=== PATIENT | male | born 1945 ===

== ENCOUNTER 2023-08-30 13:40 | Inpatient (IN) ==
[2023-08-30] MEDS ORDERED: ONDANSETRON 4 MG/2 ML VIAL IV PRN (16:36)
[2023-08-30] MEDS ORDERED: BISACODYL 10 MG SUPP.RECT PR PRN (16:39)
[2023-08-30] MEDS ORDERED: SENNOSIDES 1 TABLET PO PRN (16:39)
[2023-08-30 17:40] LABS: Basophils # (Auto) 0.01 K/mcL (0.00-0.30); Basophils % (Auto) 0.3 % (0.0-2.0); Eosinophils # (Auto) 0.09 K/mcL (0.00-0.70); Eosinophils % (Auto) 2.6 % (0.0-7.0); Hematocrit 27.5 % (40.1-51.0); Hemoglobin 9.4 g/dL (13.7-17.5); Lymphocytes # (Auto) 0.82 K/mcL (1.50-4.80); Lymphocytes % (Auto) 23.9 % (15.5-49.0); Mean Cell Volume 96.2 fL (80.0-100.0); Mean Corpuscular HGB Conc 34.2 g/dL (31.0-36.0); Mean Platelet Volume 10.1 fL (8.8-12.5); Monocytes # (Auto) 0.27 K/mcL (0.10-0.90); Monocytes % (Auto) 7.9 % (1.0-12.0); Platelet Count 136 K/mcL (140-440); RBC 2.86 M/mcL (4.63-6.08); Red Cell Distribution Width 13.1 % (11.5-14.5); WBC 3.4 K/mcL (4.5-11.0)
[2023-08-30 17:54] LABS: AST/SGOT 23 U/L (<40); Albumin 3.4 gm/dL (3.2-5.2); Albumin/Globulin Ratio 1.4 (1.0-2.3); Alkaline Phosphatase 117 U/L (39-117); Bilirubin,Total 1.1 mg/dL (0.1-1.0); Blood Urea Nitrogen 17 mg/dL (8-23); Calcium 8.5 mg/dL (8.6-10.4); Carbon Dioxide 25 mmol/L (22-30); Chloride 104 mmol/L (96-108); Globulin 2.5 gm/dL (2.2-3.7); Glomerular Filtration Rate 64; Glucose 116 mg/dL (70-105)
[2023-08-30] MEDS: cefTRIAXone 2 GM in DEXTROSE 5% IN WATER 50 ML IV SCH (18:15)
[2023-08-30] MEDS ORDERED: PROPOFOL 200 MG/20 ML VIAL IV ONE (18:37)
[2023-08-30] MEDS: LIDOCAINE 2% URO-JET 10 ML JEL.PF.APP UR ONE (18:49)
[2023-08-30] MEDS ORDERED: SUGAMMADEX SODIUM 200 MG/2 ML VIAL IV ONE (18:50)
[2023-08-30] MEDS ORDERED: PROMETHAZINE 25 MG/ML VIAL IV PRN (18:51)
[2023-08-30] MEDS ORDERED: IPRATROPIUM/ALBUTEROL 3 ML AMPUL.NEB NEB PRN (18:51)
[2023-08-30] MEDS ORDERED: SUCCINYLCHOLINE 200 MG/10 ML VIAL IV ONE (19:11)
[2023-08-30] MEDS ORDERED: ONDANSETRON 4 MG/2 ML VIAL ONE (19:11)
[2023-08-30] MEDS ORDERED: LIDOCAINE 2% PF 5 ML VIAL ONE (19:11)
[2023-08-30] MEDS ORDERED: ROCURONIUM 10 MG/ML ML IV ONE (19:11)
[2023-08-30] MEDS: fentaNYL 100 MCG/2 ML VIAL IV PRN (19:24)
[2023-08-30] MEDS: fentaNYL 100 MCG/2 ML VIAL ONE ×2 (19:31→20:05)
[2023-08-30] MEDS: 0.9 % SODIUM CHLORIDE 10 ML SYRINGE IV SCH (20:05)
[2023-08-30] MEDS: LACTATED RINGERS 1,000 ML IV SCH (20:05)
[2023-08-30] MEDS: oxyCODONE IR 5 MG TABLET PO PRN (21:50)
[2023-08-30] MEDS: FAMOTIDINE 20 MG TABLET PO SCH (21:50)
[2023-08-30] MEDS: NICOTINE 21 MG PATCH TOPICAL SCH (22:21)
[2023-08-31] MEDS: ACETAMINOPHEN 325 MG TABLET PO PRN (00:39)
[2023-08-31 06:20] LABS: Basophils # (Auto) 0.04 K/mcL (0.00-0.30); Basophils % (Auto) 0.9 % (0.0-2.0); Eosinophils # (Auto) 0.14 K/mcL (0.00-0.70); Eosinophils % (Auto) 3.1 % (0.0-7.0); Hematocrit 26.1 % (40.1-51.0); Hemoglobin 8.9 g/dL (13.7-17.5); Lymphocytes # (Auto) 0.94 K/mcL (1.50-4.80); Lymphocytes % (Auto) 20.6 % (15.5-49.0); Mean Cell Volume 94.9 fL (80.0-100.0); Mean Corpuscular HGB Conc 34.1 g/dL (31.0-36.0); Mean Platelet Volume 10.1 fL (8.8-12.5); Monocytes # (Auto) 0.37 K/mcL (0.10-0.90); Monocytes % (Auto) 8.1 % (1.0-12.0); Neutrophils % (Auto) 66.9 % (38.0-78.0); Platelet Count 161 K/mcL (140-440); RBC 2.75 M/mcL (4.63-6.08); Red Cell Distribution Width 13.2 % (11.5-14.5); WBC 4.6 K/mcL (4.5-11.0)
[2023-08-31 06:54] LABS: ALT/SGPT < 5 U/L (<40); AST/SGOT 18 U/L (<40); Albumin 3.2 gm/dL (3.2-5.2); Albumin/Globulin Ratio 1.4 (1.0-2.3); Alkaline Phosphatase 103 U/L (39-117); Bilirubin,Total 0.9 mg/dL (0.1-1.0); Blood Urea Nitrogen 12 mg/dL (8-23); Calcium 8.5 mg/dL (8.6-10.4); Carbon Dioxide 26 mmol/L (22-30); Chloride 106 mmol/L (96-108); Globulin 2.3 gm/dL (2.2-3.7); Glomerular Filtration Rate 72; Glucose 101 mg/dL (70-105)
[2023-08-31] MEDS: NICOTINE 14 MG PATCH TOPICAL SCH (10:47)
[2023-08-31] MEDS: POTASSIUM CHLORIDE 20 MEQ TABLET PO ONE ×2 (10:59→15:26)
[2023-09-01 06:45] LABS: Basophils # (Auto) 0.02 K/mcL (0.00-0.30); Basophils % (Auto) 0.5 % (0.0-2.0); Eosinophils # (Auto) 0.17 K/mcL (0.00-0.70); Eosinophils % (Auto) 4.5 % (0.0-7.0); Hematocrit 26.1 % (40.1-51.0); Hemoglobin 8.9 g/dL (13.7-17.5); Lymphocytes # (Auto) 0.65 K/mcL (1.50-4.80); Lymphocytes % (Auto) 17.2 % (15.5-49.0); Mean Cell Volume 97.4 fL (80.0-100.0); Mean Corpuscular HGB Conc 34.1 g/dL (31.0-36.0); Mean Platelet Volume 10.3 fL (8.8-12.5); Monocytes # (Auto) 0.22 K/mcL (0.10-0.90); Monocytes % (Auto) 5.8 % (1.0-12.0); Neutrophils % (Auto) 71.7 % (38.0-78.0); Platelet Count 170 K/mcL (140-440); RBC 2.68 M/mcL (4.63-6.08); Red Cell Distribution Width 12.9 % (11.5-14.5); WBC 3.8 K/mcL (4.5-11.0)
[2023-09-01 07:00] LABS: ALT/SGPT < 5 U/L (<40); AST/SGOT 25 U/L (<40); Albumin 3.4 gm/dL (3.2-5.2); Albumin/Globulin Ratio 1.4 (1.0-2.3); Alkaline Phosphatase 130 U/L (39-117); Bilirubin,Total 0.7 mg/dL (0.1-1.0); Blood Urea Nitrogen 11 mg/dL (8-23); Calcium 8.8 mg/dL (8.6-10.4); Carbon Dioxide 27 mmol/L (22-30); Chloride 104 mmol/L (96-108); Globulin 2.5 gm/dL (2.2-3.7); Glomerular Filtration Rate 82; Glucose 110 mg/dL (70-105)
[2023-09-02 06:27] LABS: Basophils # (Auto) 0.02 K/mcL (0.00-0.30); Basophils % (Auto) 0.4 % (0.0-2.0); Eosinophils # (Auto) 0.41 K/mcL (0.00-0.70); Eosinophils % (Auto) 9.2 % (0.0-7.0); Hematocrit 25.8 % (40.1-51.0); Hemoglobin 8.6 g/dL (13.7-17.5); Lymphocytes # (Auto) 1.13 K/mcL (1.50-4.80); Lymphocytes % (Auto) 25.3 % (15.5-49.0); Mean Cell Volume 98.5 fL (80.0-100.0); Mean Corpuscular HGB Conc 33.3 g/dL (31.0-36.0); Mean Platelet Volume 10.4 fL (8.8-12.5); Monocytes # (Auto) 0.32 K/mcL (0.10-0.90); Monocytes % (Auto) 7.2 % (1.0-12.0); Neutrophils % (Auto) 57.5 % (38.0-78.0); Platelet Count 172 K/mcL (140-440); RBC 2.62 M/mcL (4.63-6.08); Red Cell Distribution Width 13.1 % (11.5-14.5); WBC 4.5 K/mcL (4.5-11.0)
[2023-09-02 06:53] LABS: ALT/SGPT 12 U/L (<40); AST/SGOT 38 U/L (<40); Albumin 3.1 gm/dL (3.2-5.2); Albumin/Globulin Ratio 1.2 (1.0-2.3); Alkaline Phosphatase 155 U/L (39-117); Bilirubin,Total 0.5 mg/dL (0.1-1.0); Blood Urea Nitrogen 14 mg/dL (8-23); Calcium 8.8 mg/dL (8.6-10.4); Carbon Dioxide 26 mmol/L (22-30); Chloride 104 mmol/L (96-108); Globulin 2.6 gm/dL (2.2-3.7); Glomerular Filtration Rate 86; Glucose 101 mg/dL (70-105)
[2023-09-03 07:05] LABS: Basophils # (Auto) 0.02 K/mcL (0.00-0.30); Basophils % (Auto) 0.5 % (0.0-2.0); Eosinophils % (Auto) 9.4 % (0.0-7.0); Hematocrit 26.9 % (40.1-51.0); Hemoglobin 8.8 g/dL (13.7-17.5); Lymphocytes # (Auto) 1.21 K/mcL (1.50-4.80); Lymphocytes % (Auto) 28.3 % (15.5-49.0); Mean Cell Volume 101.1 fL (80.0-100.0); Mean Corpuscular HGB Conc 32.7 g/dL (31.0-36.0); Mean Platelet Volume 10.3 fL (8.8-12.5); Monocytes # (Auto) 0.29 K/mcL (0.10-0.90); Monocytes % (Auto) 6.8 % (1.0-12.0); Neutrophils % (Auto) 54.5 % (38.0-78.0); Platelet Count 177 K/mcL (140-440); RBC 2.66 M/mcL (4.63-6.08); Red Cell Distribution Width 12.9 % (11.5-14.5); WBC 4.3 K/mcL (4.5-11.0)
[2023-09-03 07:07] LABS: ALT/SGPT 29 U/L (<40); AST/SGOT 51 U/L (<40); Albumin 3.1 gm/dL (3.2-5.2); Albumin/Globulin Ratio 1.1 (1.0-2.3); Alkaline Phosphatase 177 U/L (39-117); Bilirubin,Total 0.5 mg/dL (0.1-1.0); Blood Urea Nitrogen 15 mg/dL (8-23); Calcium 8.8 mg/dL (8.6-10.4); Carbon Dioxide 24 mmol/L (22-30); Chloride 103 mmol/L (96-108); Globulin 2.8 gm/dL (2.2-3.7); Glomerular Filtration Rate 86; Glucose 92 mg/dL (70-105)
[2023-09-04 07:03] LABS: Basophils # (Auto) 0.02 K/mcL (0.00-0.30); Basophils % (Auto) 0.6 % (0.0-2.0); Eosinophils # (Auto) 0.34 K/mcL (0.00-0.70); Eosinophils % (Auto) 9.4 % (0.0-7.0); Hematocrit 28.2 % (40.1-51.0); Hemoglobin 9.2 g/dL (13.7-17.5); Lymphocytes # (Auto) 1.11 K/mcL (1.50-4.80); Lymphocytes % (Auto) 30.6 % (15.5-49.0); Mean Cell Volume 99.3 fL (80.0-100.0); Mean Corpuscular HGB Conc 32.6 g/dL (31.0-36.0); Mean Platelet Volume 10.4 fL (8.8-12.5); Monocytes # (Auto) 0.26 K/mcL (0.10-0.90); Monocytes % (Auto) 7.2 % (1.0-12.0); Neutrophils % (Auto) 52.2 % (38.0-78.0); Platelet Count 196 K/mcL (140-440); RBC 2.84 M/mcL (4.63-6.08); Red Cell Distribution Width 12.7 % (11.5-14.5); WBC 3.6 K/mcL (4.5-11.0)
[2023-09-04 07:10] LABS: ALT/SGPT 45 U/L (<40); AST/SGOT 67 U/L (<40); Albumin 3.3 gm/dL (3.2-5.2); Albumin/Globulin Ratio 1.1 (1.0-2.3); Alkaline Phosphatase 200 U/L (39-117); Bilirubin,Total 0.5 mg/dL (0.1-1.0); Blood Urea Nitrogen 15 mg/dL (8-23); Calcium 9.2 mg/dL (8.6-10.4); Carbon Dioxide 28 mmol/L (22-30); Chloride 104 mmol/L (96-108); Globulin 2.9 gm/dL (2.2-3.7); Glomerular Filtration Rate 86; Glucose 96 mg/dL (70-105)
== END 2023-09-04 14:10 | disposition home or self-care (01) | DRG 726 ==
LOC: MEDSUR 16:27
PROVIDERS: ADMIT Internal Medicine; ATTEND Internal Medicine